=== PATIENT | male | born 1990 ===

== ENCOUNTER 2017-07-01 12:05 | Emergency (ER) | payer SELFPAY ==
[2017-07-01 12:14] VITALS: BP 129/77
--- NOTE | 2017-07-01 13:34 | UC ---
Headache HPI - HPI Summary HPI Summary: Patient complains of throbbing headache over his whole head but worse behind his right eye. Denies any visual disturbances. No photophobia, phonophobia, nausea or dizziness. States he is not a headache person or migraineur. Has not taken any ibuprofen or other analgesics for pain relief. States he hydrates well but admits he has not been sleeping much over the past few days. Does not wear glasses or contacts and states his vision was normal when checked about a year ago. - History Of Current Complaint Chief Complaint: UCHeadache Stated Complaint: HEADACHE Time Seen by Provider: 07/01/17 13:22 Hx Obtained From: Patient Onset/Duration: Gradual Onset, Lasting Days, Still Present Onset Of Symptoms: Gradual Pain Intensity: 9 Pain Scale Used: 0-10 Numeric Timing: Constant Character: Throbbing Location of Headache: Diffuse Aggravating Factor(s): Nothing Allevating Factor(s): Nothing Associated Signs And Symptoms: Negative: Dizziness, Seizure, Nausea, Vomiting, Sinus Pressure, Fever, Neck Pain, Neck Stiffness, Decreased LOC, Visual Changes - Allergies/Home Medications Allergies/Adverse Reactions: Allergies Allergy/AdvReac Type Severity Reaction Status Date / Time No Known Allergies Allergy Verified 07/01/17 12:13 Home Medications: Home Medications NK [No Home Medications Reported] 07/01/17 [History Confirmed 07/01/17] PMH/Surg Hx/FS Hx/Imm Hx Previously Healthy: Yes - Surgical History Surgical History: None - Family History Known Family History: Positive: Hypertension Negative: Blood Disorder - Social History Alcohol Use: Occasionally Substance Use Type: None Smoking Status (MU): Heavy Every Day Tobacco Smoker Type: Cigarettes Review of Systems Constitutional: Negative Eyes: Negative ENT: Negative Respiratory: Negative Cardiovascular: Negative Gastrointestinal: Negative Neurological: Headache All Other Systems Reviewed And Are Negative: Yes Physical Exam Triage Information Reviewed: Yes Appearance: Well-Appearing, No Pain Distress, Well-Nourished Vital Signs: Initial Vital Signs Temp 98.8 F 07/01/17 12:11 Pulse 115 07/01/17 12:11 Resp 18 07/01/17 12:11 BP 129/77 07/01/17 12:11 Pulse Ox 97 07/01/17 12:11 Vital Signs Reviewed: Yes Eyes: Positive: Conjunctiva Clear ENT: Positive: Hearing grossly normal, Pharynx normal, TMs normal Neck: Positive: Supple, Nontender, No Lymphadenopathy Respiratory Exam: Normal Cardiovascular: Positive: Tachycardia Abdomen Description: Positive: Soft Musculoskeletal: Positive: No Edema Neurological: Positive: Alert, Other: - CN II-XII GROSSLY INTACT BILATERALLY. NEG PRONATOR DRIFT. NEGATIVE ROMBERG. FINGER TO NOSE INTACT BILATERALLY. HEEL TO SOTO INTACT BILATERALLY. HEEL TO TOE INTACT BILATERALLY. RAPID ALTERNATING MVMTS INTACT. 5/5 STRENGTH Psychological: Positive: Age Appropriate Behavior Skin: Negative: rashes Diagnostics - Radiology CT HEAD W/O CONTRAST Xray Interpretation: No Acute Changes Radiology Interpretation Completed By: Radiologist Headache Course/Dx - Differential Dx/Diagnosis Provider Diagnoses: TENSION HEADACHE Discharge - Sign-Out/Discharge Documenting (check all that apply): Discharge/Admit/Transfer - Discharge Plan Condition: Stable Disposition: HOME Patient Education Materials: Tension Headache (ED) Referrals: No Primary Care Phys,NOPCP [Primary Care Provider] - Additional Instructions: CT HEAD UNREMARKABLE TODAY. LIKELY A TENSION HEADACHE. BE SURE TO STAY WELL- HYDRATED, GET MUCH REST POSSIBLE AND FOLLOW-UP WITH AN EYE DOCTOR TO ENSURE YOU DON'T NEED ANY CORRECTIVE LENSES. TAKE IBUPROFEN NEEDED FOR DISCOMFORT. SEEK FOLLOW-UP IF YOU DO NOT IMPROVE OVER THE NEXT FEW DAYS. IBUPROFEN MAX DOSE: 600MG (3 TABS) EVERY 6 HRS OR 800MG (4 TABS) EVERY 8 HRS OR NAPROXEN MAX DOSE: 440MG (2 TABS) EVERY 12 HRS TYLENOL MAX DOSE: 1000MG (2 EXTRA STRENGTH TABS) EVERY 8 HRS OR 650MG (2 REGULAR TABS) EVERY 6 HRS CALL THE NUMBER BELOW FOR ASSISTANCE IN ESTABLISHING WITH A PCP An additional resource available to assist in finding the appropriate physician for your health care needs is [facility] ([facility]). You may contact them by calling [phone]. - Billing Disposition and Condition Condition: STABLE Disposition: HOME
[2017-07-01] MEDS ORDERED: Ibuprofen TAB* 400 MG PO ONE (13:39)
--- NOTE | 2017-07-01 14:38 | RAD ---
HISTORY: Headache COMPARISONS: None TECHNIQUE: Multiple contiguous axial CT scans were obtained of the head without intravenous contrast. FINDINGS: HEMORRHAGE/INFARCT: There is no hemorrhage or acute infarct. MASSES/SHIFT: There is no mass or shift. EXTRA-AXIAL SPACES: There are no extra-axial fluid collections. SULCI AND VENTRICLES: The sulci and ventricles are normal in size and position for the patient's stated age. CEREBRUM: There are no focal parenchymal abnormalities. BRAINSTEM: There are no focal parenchymal abnormalities. CEREBELLUM: There are no focal parenchymal abnormalities. VESSELS: The vessels are grossly normal. PARANASAL SINUSES: The paranasal sinuses are clear. ORBITS: The orbits are unremarkable. BONES AND SOFT TISSUE: No bone or soft tissue abnormalities are noted. OTHER: None IMPRESSION: NO ACUTE INTRACRANIAL PATHOLOGY.
== END 2017-07-01 14:45 | disposition home or self-care (01) ==
LOC: UCEAST 12:05
DX: G44.209 Tension-type headache, unspecified, not intractable (principal); F17.210 Nicotine dependence, cigarettes, uncomplicated
CPT/HCPCS: 70450; 99201; A9270-GY; G0463